=== PATIENT | female | born 1985 | race Caucasian/White ===

== ENCOUNTER → 2019-07-29 14:56 | Outpatient (CLI) | payer OTHER, SELFPAY ==
[2019-07-31 11:10] LABS: SAR-COV-2 IGG ANTIBODY Negative (Negative)
== END ==
PROVIDERS: PCP Family Medicine; Referring Provider Family Medicine; Visit Provider Family Medicine
DX: Z20.828 Contact with and (suspected) exposure to other viral communicable diseases (principal)
CPT/HCPCS: 86769; G2023

== ENCOUNTER → 2021-02-12 17:20 | Outpatient (CLI) | payer OTHER, SELFPAY | PROVIDERS: PCP Family Medicine; Visit Provider Family Medicine | DX: U07.1 COVID-19 (principal) | CPT/HCPCS: 87635; U0005; U0003 ==